=== PATIENT | female | born 1985 | race Caucasian/White ===

== ENCOUNTER 2022-12-24 08:49 | Outpatient (CLI) | payer BC, SELFPAY ==
[2022-12-24 09:25] LABS: Hematocrit 42.4 % (37.0-47.0); Hemoglobin 13.8 g/dL (12.0-15.0)
== END 2022-12-24 08:50 | disposition home or self-care (01) ==
LOC: ANHLAB 08:51
PROVIDERS: PCP Internal Medicine; Visit Provider Obstetrics & Gynecology
DX: N92.6 Irregular menstruation, unspecified (principal); Z01.818 Encounter for other preprocedural examination
CPT/HCPCS: 36415; 85014; 85018

== ENCOUNTER 2022-12-30 04:29 | Day surgery (SDC) | payer BC, SELFPAY ==
[2022-12-23 12:56] VITALS: BMI 33.8
--- NOTE | 2022-12-23 13:03 | PC.NURSE ---
Report to the Outpatient Waiting Room, entrance under the green pavilion located off [facility], at time 7:30 on date 12/30/22. Planned Procedure Time: 9:30. Time changes happen often and if your time is changed the preop area will call you the afternoon before. - You and your visitor will be asked to self-screen and do not enter if you have any COVID symptoms. - A mask is optional within the hospital at this time. Patients may have clear liquids (water, carbonated beverages, clear teas, apple juice) until 3 hours prior to surgery (6:30) with a maximum of 20 ounces. - No food from midnight until time of surgery Take the following medications with a SIP of water the morning of surgery: VALACYCLOVIR IF NEEDED DO NOT STOP ANY OF YOUR OTHER PRESCRIPTION MEDICATIONS PRIOR TO SURGERY EXCEPT THE FOLLOWING Medications to discontinue per physician: VITAMINS/SUPPLEMENTS Date to take last dose: 12/26/22 Please no make-up, nail welsh, hairspray, perfume, deodorant, or body powder the day of surgery. No jewelry (including any body piercings) or valuables the day of surgery, leave them at home. Please take a shower or bath the night before, or the morning of, surgery with an antibacterial soap. Wear comfortable, loose fitting clothing. - Jewelry must be removed prior to entering the operating room. Rings and piercings that are not removed may be cut off. - The hospital will not accept responsibility for valuables. - Please leave all valuables, including medications, at home the day of surgery. If you are going home after surgery, a licensed hazmat cdl a driver must drive you home. - NO public transportation without another adult if you receive anesthesia. - We recommend that an adult stay with you for 24 hours following discharge. - We also recommend that you do not drive, make important decision, drink alcoholic beverages, or take any drugs that were not prescribed by your health care provider for at least 24 hours after your discharge time. Follow any additional instructions given to you from your surgeon. If you or anyone in your household have experienced Covid symptoms in the past week, please notify your surgeon or the nurse liaison at the phone number below for possible testing. Telephone instructions given to PT - VERO HARDY and asked if any additional questions and then verbalized understanding. Patient advised to call surgeon office or pre surgery nurse liaison [phone] if any additional questions.
--- NOTE | 2022-12-28 16:16 | PM.IMHP ---
H&P: HPI History of Present Illness Date/Time: 12/28/22 16:16 Chief Complaint: Irregular excessive bleeding Narrative: Cyst 37-year-old female 3 para 3 who is admitted for hysteroscopy dilatation curettage. She has heavy bleeding and ultrasound showed some irregular blood flow in the endometrial canal. Polyp is suspected. She will undergo hysteroscopy dilatation curettage. Risks and benefits reviewed including but not exclusive of , aspiration pneumonia, bleeding, transfusion, perforation injury to, bladder, ureters, or other internal organs with need for laparotomy. She received the ACOG handouts entitled hysteroscopy as well as dilatation and curettage respectively. She had all questions answered and asked to proceed PMFSH Family History Family History Other Cerebrovascular accident Diabetes mellitus Family history of drug dependence Social History Social History Smoking packs per day: 1 Smoking cigarettes per day: 20.0 Years smoked: 15 Smoking pack-years: 15.00 Smoking status: Former smoker Tobacco type: cigarettes Smoking end date: 07/03/12 Alcohol intake: current Drinks per week: 2 Substance use: never Substance use type: does not use Living arrangements: with family Additional living arrangements comments: SON Spiritual care concerns: No Meds Home Medications and Allergies Home Medications Medication Instructions Recorded Confirmed Type ferrous sulfate 325 mg (65 mg 325 mg PO DAILY 12/23/22 12/23/22 History iron) tablet (Iron (ferrous sulfate)) multivitamin 1 tablet PO DAILY 12/23/22 12/23/22 History pantoprazole 40 mg tablet,delayed 40 mg PO DAILY 12/23/22 12/23/22 History release valacyclovir 500 mg tablet 500 mg PO PRN PRN Cold Sores 12/23/22 12/23/22 History Allergies Allergy/AdvReac Type Severity Reaction Status Date / Time No Known Allergies Allergy Unknown Unverified 12/23/22 12:54 Exam Const: General: cooperative, healthy appearing, comfortable and overweight Orientation/consciousness: oriented to person, oriented to place and oriented to time HENMT: Head: normal to inspection Resp: Effort & Inspection: normal respiratory effort Cardio: Rate: regular rate Rhythm: regular rhythm Heart sounds: S1 normal heart sound present and S2 normal heart sound present GI: Inspection: normal to inspection : External Female Exam: normal external appearance Speculum Exam - Vagina: normal appearance of the vagina and vaginal bleeding Speculum Exam - Cervix: normal appearance of the cervix Bimanual exam- vagina & uterus: enlarged Bimanual Exam- Adnexa, other: normal adnexae Assessment and Plan Assessment and plan (1) Excessive bleeding: Code(s): R58 - Hemorrhage, not elsewhere classified Status: Acute Plan Hysteroscopy/dilatation curettage
--- NOTE | 2022-12-29 13:29 | P.PNAN_ITS ---
Anes - Initial Pre Proc Eval Procedure: Operation Date: 12/30/22 08:30 Proposed Procedures p Hysteroscopy Dilation and Curettage - Adryan Hernandez MD Date/Time: 12/29/22 13:29 Surgeon: Adryan Hernandez MD Pre Op Diagnosis: irregular bleeding Patient Data Age: 37 Gender: F Height: 1.7 m Weight: 98 kg Allergies Allergy/AdvReac Type Severity Reaction Status Date / Time No Known Allergies Allergy Unknown Unverified 12/23/22 12:54 Home Medications Medication Instructions Recorded Confirmed Type ferrous sulfate 325 mg (65 mg 325 mg PO DAILY 12/23/22 12/23/22 History iron) tablet (Iron (ferrous sulfate)) multivitamin 1 tablet PO DAILY 12/23/22 12/23/22 History pantoprazole 40 mg tablet,delayed 40 mg PO DAILY 12/23/22 12/23/22 History release valacyclovir 500 mg tablet 500 mg PO PRN PRN Cold Sores 12/23/22 12/23/22 History hydrocodone 5 mg-acetaminophen 325 1 tablet PO Q4H PRN pain #20 tabs 12/30/22 Rx mg tablet Patient hx anesthesia problems: none Family hx anesthesia problems: none Results Review: All pre-operative results and documents have been reviewed as part of the pre- operative evaluation. [facility] Past Medical History Medical History (Updated 12/29/22 @ 13:29 by Horace Lieberman DO) Anxiety Bipolar disorder Depression GERD (gastroesophageal reflux disease) Family History Family History Other Cerebrovascular accident Diabetes mellitus Family history of drug dependence Social History Social History Smoking packs per day: 1 Smoking cigarettes per day: 20.0 Years smoked: 15 Smoking pack-years: 15.00 Smoking status: Former smoker Tobacco type: cigarettes Smoking end date: 07/03/12 Alcohol intake: current Drinks per week: 2 Substance use: never Substance use type: does not use Living arrangements: with family Additional living arrangements comments: SON Spiritual care concerns: No Anes - Eval Final PreProcedure Day of Procedure 12/29/22 13:29 Patient weight: obese Heart: regular rate and rhythm Lungs: clear to auscultation Airway: Mallampati scale class II Neurological: alert and oriented Last oral intake: >/= 8 hours ASA classification: III Emergent: no Anesthetic plan: proceed Anesthesia type and monitoring: general GIVS and standard monitoring Results Review: All pre-operative results and documents have been reviewed as part of the pre- operative evaluation. Informed Consent: The patient's anesthetic plan and its attendant risks and benefits were discussed with the patient/family/POA. Questions were solicited and answers provided to the satisfaction of the patient/family/POA.
[2022-12-30 06:43] VITALS: BP 149/101; PULSE 100; RESP 8; TEMP 36.1; O2SAT 98
[2022-12-30] MEDS: ACETAMINOPHEN 500 MG TABLET 1000 MG PO (07:00)
[2022-12-30] MEDS: LACTATED RINGERS 1,000 ML 30 ML IV CONT (07:10)
--- NOTE | 2022-12-30 07:20 | WPDHPUPDATE1 ---
History and Physical Update Update Date/Time: 12/30/22 07:20 History and Physical has been reviewed, including an updated exam of the patient. There are NO changes in the patient's condition. Risks, benefits, and alternatives have been discussed and questions answered. Patient agrees to proceed with procedure.
--- NOTE | 2022-12-30 07:21 | WPDHPUPDATE1 ---
History and Physical Update Update Date/Time: 12/30/22 07:21 History and Physical has been reviewed, including an updated exam of the patient. There are NO changes in the patient's condition. Risks, benefits, and alternatives have been discussed and questions answered. Patient agrees to proceed with procedure.
[2022-12-30] MEDS: LIDOCAINE HCL 1% LOCAL INJ 10 ML VIAL INFILTRATE (08:59)
--- NOTE | 2022-12-30 09:06 | W.PM.PROC2 ---
Procedure Note - Detailed Date of Procedure 12/30/22 Pre-op Diagnosis irregular bleeding Post-op Diagnosis Same Procedure Performed Hysteroscopy / dilatation curettage Surgeon Adryan Hernandez MD Anesthesia MAC and Local Indications this is 37-year-old female with excessive heavy bleeding Findings uterus sounded 9cm. Thick irregular endometrial tissue was seen. Each fallopian tube os was noted Description of Procedure patient was prepped draped in normal sterile fashion placed in the dorsal lithotomy position. Under excellent IV sedation weighted speculum placed in posterior fornix vagina. Anterior lip of the cervix grasped with single-tooth tenaculum. 2.5cc 1% xylocaine anesthesia placed at 2, 4, 8, 10:00 a.m. of the cervix. Uterus sounded to 9cm. Serial dilatation with fragmented dilators performed. This was followed by passage of the the Senait a 5mm visualizing hysteroscope. Thick irregular endometrial tissue was seen but no evidence of polyp or other definitive pathology was seen. The uterus was then scraped over the entire 360? until a good grating sound was heard. The instruments withdrawn the patient was awakened. She went to recovery in satisfactory condition. All, needle, instrument counts were correct. Blood loss estimated at5cc Estimated Blood Loss 5 Drains No Packing No Pathology Yes Complications No immediate complications Condition Stable Disposition PACU
[2022-12-30 09:11] VITALS: BP 136/86; PULSE 88; RESP 15; O2SAT 100
[2022-12-30 09:30] VITALS: BP 131/87; PULSE 71; RESP 16
[2022-12-30 10:00] VITALS: BP 132/80; PULSE 68; RESP 15
--- NOTE | 2022-12-30 10:37 | SUR.PHASEII ---
1010: patient received DC instructions, iv catheter removed.
== END 2022-12-30 10:39 | disposition home or self-care (01) ==
PROVIDERS: PCP Internal Medicine; Visit Provider Obstetrics & Gynecology
PROC: 0U5B8ZZ Destruction of Endometrium, Via Natural or Artificial Opening Endoscopic (ICD-10-PCS; CPT 58563; principal; 2022-12-30 08:30)
DX: N84.0 Polyp of corpus uteri (principal); N92.1 Excessive and frequent menstruation with irregular cycle; Z87.891 Personal history of nicotine dependence
CPT/HCPCS: 58558; 36415; 85014; 85018; 88305; A9270; J1100; J2250; J2405; J2704; J3010; J7120

== ENCOUNTER 2023-08-29 13:45 | Outpatient (CLI) | payer BC, SELFPAY ==
--- NOTE | ~2023-08-29 | MMUS_ITS ---
EXAMINATION: MM diagnostic brandy BI w terrence, US breast BI complete HISTORY: Palpable left breast lump TECHNIQUE: Additional 3-D tomosynthesis images of the breasts were performed and synthetic 2-D images were generated. CAD analysis was submitted and interpreted. High resolution bilateral complete breas t ultrasound was performed. COMPARISON: 12/05/2013 BREAST PARENCHYMAL COMPOSITION: Dense: The breasts are heterogeneously dense, which may obscure small masses FINDINGS: MAMMOGRAPHIC FINDINGS: The right breast is stable without evidence for malignancy. There are asymmetries in the upper outer quadrant of the left breast. There are scattered punctate calcifications in both breasts which have a monomorphic appearance, likely benign. Focal asymmetries. The the left breast on medial lateral and MLO views correspond to the area of palpable concern. ULTRASOUND: Complete bilateral US of all 4 quadrants of the breasts and retroareolar region was reviewed. Right breast: There are multiple small cysts at 10:00, 14 cm from the nipple. At 10:00, 7 cm from the nipple there are small cysts. Left breast: There are clustered cysts at 2:00, 12 cm from the nipple in the area palpable concern co rresponding to the mammographic finding. At 2:00, 12 cm from the nipple there is an oval hypoechoic s olid appearing mass measuring 1.1 cm without posterior features or internal vascularity. There is par allel orientation. At 1:00, 5 cm from the nipple there is an oval circumscribed parallel oriented hyp oechoic 5 mm mass without posterior features or internal vascularity. IMPRESSION: 1. Probable benign left breast masses at 2:00, 12 cm from the nipple and 1:00, 5 cm from the nipple. The remainder of the masses have a benign appearance. 2. Recommend 6 month follow-up diagnostic left mammogram and ultrasound BI-RADS category 3, probably benign findings. Reviewed, dictated and finalized at location A. GRINDER IMPRESSION: 1. Probable benign left breast masses at 2:00, 12 cm from the nipple and 1:00, 5 cm from the nipple. The remainder of the masses have a benign appearance. 2. Recommend 6 month follow-up diagnostic left mammogram and ultrasound BI-RADS category 3, probably benign findings.
== END 2023-08-29 13:46 ==
LOC: MICIMG 13:47
PROVIDERS: PCP Obstetrics & Gynecology; Visit Provider Internal Medicine
DX: R92.8 Other abnormal and inconclusive findings on diagnostic imaging of breast (principal)
CPT/HCPCS: 76641; 77062; 77066; G0279

== ENCOUNTER 2024-02-27 08:11 | Outpatient (CLI) | payer OTHER, SELFPAY ==
--- NOTE | ~2024-02-27 | MMUS_ITS ---
EXAMINATION: MM diagnostic brandy LT w terrence, US breast LT limited HISTORY: Follow-up left breast masses. TECHNIQUE: Additional 3-D tomosynthesis images of the left breast were performed and synthetic 2-D im ages were generated. CAD analysis was submitted and interpreted. High resolution Limited left breast ultrasound was performed. COMPARISON: Comparison to multiple prior studies sequentially, with oldest reviewed study dated 10/2013. BREAST PARENCHYMAL COMPOSITION: Dense: The breasts are heterogeneously dense, which may obscure small masses FINDINGS: MAMMOGRAPHIC FINDINGS: There are obscured masses in the upper outer quadrant of the left breast. There are benign left breas t calcifications. There is no architectural distortion or skin thickening. ULTRASOUND: Limited left breast ultrasound: At 2:00, 12 cm from the nipple there is a 1.2 cm septated cyst. At 2: 00, 9 cm from the nipple there is a 9 mm cyst. No suspicious masses to suggest malignancy. IMPRESSION: 1. No evidence for malignancy in the left breast. Benign findings. 2. Routine yearly screening mammogram and regular clinical breast examination are recommended. BI-RADS Category 2: Benign finding(s). Reviewed, dictated and finalized at location B. IMPRESSION: 1. No evidence for malignancy in the left breast. Benign findings. 2. Routine yearly screening mammogram and regular clinical breast examination a re recommended. BI-RADS Category 2: Benign finding(s).
== END 2024-02-27 08:12 ==
LOC: MICIMG 08:12
PROVIDERS: PCP Obstetrics & Gynecology; Visit Provider Obstetrics & Gynecology
DX: R92.8 Other abnormal and inconclusive findings on diagnostic imaging of breast (principal)
CPT/HCPCS: 76642; 77061; 77065; G0279